=== PATIENT | male | born 1995 | race African-American/Black ===

== ENCOUNTER → 2021-07-28 | Outpatient (CLI) | payer BC ==
--- NOTE | 2021-07-28 10:31 | RAD ---
EXAM: ULTRASOUND ABDOMEN COMPLETE CLINICAL HISTORY: Pain: COMPARISON: None available. TECHNIQUE: Ultrasound of the upper abdomen was performed. FINDINGS: The liver is normal in size. There is hepatic steatosis. No focal hepatic lesion is seen. T he gallbladder is unremarkable. The common bile duct is normal in caliber. The kidneys are normal in size. There is a 1.5 cm cyst with internal echoes likely due to debris within the left kidney. There is no hydronephrosis. The spleen is mildly enlarged, measuring 13.0 cm in maximum dimension. The panc reas is probably obscured due to bowel gas. The aorta is normal in caliber. The inferior vena cava is patent. IMPRESSION: 1. Hepatic steatosis. 2. Mild splenomegaly. 3. 1.5 cm left renal cyst with internal echoes likely due to debris. This is benign in appearance. Fo llow-up is not routinely performed for benign-appearing cysts. Electronically signed by: Carlotta Chase MD (07/28/2021 10:28 AM) [id number]
== END ==
LOC: US 15:56
DX: R16.1 Splenomegaly, not elsewhere classified (principal); N28.1 Cyst of kidney, acquired; K76.0 Fatty (change of) liver, not elsewhere classified; E78.01 Familial hypercholesterolemia
CPT/HCPCS: 76700